=== PATIENT | male | born 1965 | race Caucasian/White ===

== ENCOUNTER 2020-01-19 19:41 | Emergency (ER) | payer OTHER ==
[~2020-01-19] VITALS: Ht 167.6 cm; Wt 72.7 kg
[2020-01-19 19:46] VITALS: Ht 167.6 cm; Wt 72.7 kg
[2020-01-19] MEDS ORDERED: ERYTHROMYCIN OPT1 GM LEFT EYE (20:39)
[2020-01-19 20:46] VITALS: BP 122/78
== END 2020-01-19 20:46 | disposition home or self-care (01) ==
LOC: D.ER 19:41
DX: S05.02XA Injury of conjunctiva and corneal abrasion without foreign body, left eye, initial encounter (principal); W22.8XXA Striking against or struck by other objects, initial encounter; Y93.9 Activity, unspecified; Y92.9 Unspecified place or not applicable